=== PATIENT | male | born 2000 | race Caucasian/White ===

== ENCOUNTER 2024-10-27 13:38 | Emergency (ER) | payer MEDICAID ==
[~2024-10-27] VITALS: Ht 172.7 cm; Wt 118.2 kg
[2024-10-27 13:52] VITALS: TEMP 98.9
[2024-10-27 15:30] VITALS: BP 127/72; PULSE 79; RESP 18; O2SAT 98
[2024-10-27] MEDS ORDERED: DOXY-354 PO (16:34)
[2024-10-27] MEDS: DOXYCYCLINE HYCLATE 100 MG TABLET PO ONE (16:40)
== END 2024-10-27 16:52 | disposition home or self-care (01) ==
LOC: EMS 13:43
DX: L02.211 Cutaneous abscess of abdominal wall (principal); F12.90 Cannabis use, unspecified, uncomplicated; Z90.49 Acquired absence of other specified parts of digestive tract; Z88.0 Allergy status to penicillin
CPT/HCPCS: 99283